=== PATIENT | female | born 1980 | race Caucasian/White ===

== ENCOUNTER 2017-02-18 13:06 | Emergency (ER) | payer OTHER, MEDICAID, SELFPAY ==
--- NOTE | 2017-02-18 15:04 | Emergency Department Record ---
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 [facility] MD Complaint: Back pain Onset/Timin -: Minutes(s) Similar Symptoms Previously: Yes Place: Home Radiation: None Severity scale (1-10): 6 Quality: Other Consistency: Constant Improves With: Immobilization Worsens With: Movement Context: Unknown Associated Symptoms: Denies other symptoms Treatment Prior to Arrival Comment:: Motrin - Related Data Previous Rx's Medication Instructions Recorded Cyclobenzaprine HCl [Flexeril] 10 mg PO TID #30 tablet 02/18/17 Hydrocodone/Acetaminophen [[place] 1 each PO Q4HR #30 tablet 02/18/17 5-325 Tablet] Naproxen [Naprosyn] 500 mg PO BID #30 tablet 02/18/17 Allergies Allergy/AdvReac Type Severity Reaction Status Date / Time methylergonovine maleate Allergy Mild VOMITING Verified 02/18/17 13:25 [From Methergine] dicyclomine AdvReac Mild VOMITING Verified 02/18/17 13:25 Travel Screening - Travel/Exposure Within Last 30 Days Have you traveled within the last 30 days?: No Review of Systems Reviewed: No additional complaints except as noted below Constitutional: Reports: As per HPI. Denies: Chills, Fever, Malaise, Night sweats, Weakness, Weight change Eyes: Reports: As per HPI. Denies: Eye discharge, Eye pain, Photophobia, Vision change ENT: Reports: As per HPI. Denies: Congestion, Dental pain, Ear pain, Epistaxis , Hearing loss, Throat pain Respiratory: Reports: As per HPI. Denies: Cough, Dyspnea, Hemoptysis, Stridor, Wheezes Cardiovascular: Reports: As per HPI. Denies: Arrhythmia, Chest pain, Dyspnea on exertion, Edema, Murmurs, Orthopnea, Palpitations, Paroxysmal nocturnal dyspnea, Rheumatic Fever, Syncope Endocrine: Reports: As per HPI. Denies: Fatigue, Heat or cold intolerance, Polydipsia, Polyuria Gastrointestinal: Reports: As per HPI. Denies: Abdominal pain, Constipation, Diarrhea, Hematemesis, Hematochezia, Melena, Nausea, Vomiting Genitourinary: Reports: As per HPI. Denies: Abnormal menses, Discharge, Dyspareunia, Dysuria, Frequency, Hematuria, Incontinence, Retention, Urgency Musculoskeletal: Reports: As per HPI, Back pain (bilateral back pain). Denies: Arthralgia, Gout, Joint swelling, Myalgia, Neck pain Skin: Reports: As per HPI. Denies: Bruising, Change in color, Change in hair/ nails, Lesions, Pruritus, Rash Neurological: Reports: As per HPI. Denies: Abnormal gait, Confusion, Headache, Numbness, Paresthesias, Seizure, Tingling, Tremors, Vertigo, Weakness Psychiatric: Reports: As per HPI. Denies: Anxiety, Auditory hallucinations, Depression, Homicidal thoughts, Suicidal thoughts, Visual hallucinations Hematological/Lymphatic: Reports: As per HPI. Denies: Anemia, Blood Clots, Easy bleeding, Easy bruising, Swollen glands Past Medical History - SOCIAL HISTORY Smoking Status: Former smoker Alcohol Use: None Drug Use: None - RESPIRATORY Hx Respiratory Disorders: No - CARDIOVASCULAR Hx Cardio Disorders: No - NEURO Hx Neuro Disorders: No - GI Hx GI Disorders: No - Hx Genitourinary Disorders: No - ENDOCRINE Hx Endocrine Disorders: Yes Hx Diabetes: No Hx Thyroid Disease: Yes - MUSCULOSKELETAL Hx Musculoskeletal Disorders: No - PSYCH Hx Psych Problems: No - HEMATOLOGY/ONCOLOGY Hx Hematology/Oncology Disorders: No Family Medical History Any Significant Family History?: Yes Hx Cancer: Grandparents Hx Diabetes: Father Hx Heart Disease: Father, Children Hx Resp Disorders: Mother, Children Physical Exam - General General Appearance: Alert, Oriented x3, Cooperative, No acute distress - Head Head exam: Normal inspection - Eye Eye exam: Normal appearance, PERRL Pupils: Normal accommodation - ENT ENT exam: Normal exam, Mucous membranes moist, Normal external ear exam, Normal orophraynx, TM's normal bilaterally Ear exam: Normal external inspection. negative: External canal tenderness Nasal Exam: Normal inspection. negative: Discharge, Sinus tenderness Mouth exam: Normal external inspection, Tongue normal Teeth exam: Normal inspection. negative: Dental caries Throat exam: Normal inspection. negative: Tonsillar erythema, Tonsillar exudate - Neck Neck exam: Normal inspection, Full ROM. negative: Tenderness - Respiratory Respiratory exam: Normal lung sounds bilaterally. negative: Respiratory distress - Cardiovascular Cardiovascular Exam: Regular rate, Normal rhythm, Normal heart sounds - GI/Abdominal GI/Abdominal exam: Soft, Normal bowel sounds. negative: Tenderness - Rectal Rectal exam: Deferred - exam: Deferred - Extremities Extremities exam: Normal inspection, Full ROM, Normal capillary refill. negative: Tenderness - Back Back exam: Reports: Full ROM, Muscle spasm, Tenderness (pain with moving back , pain with palpatrion). Denies: Rash noted - Neurological Neurological exam: Alert, Normal gait, Oriented X3, Reflexes normal - Psychiatric Psychiatric exam: Normal affect, Normal mood - Skin Skin exam: Dry, Intact, Normal color, Warm Course Vital Signs 02/18/17 13:22 Temperature 98.8 F Pulse Rate 83 Respiratory 20 Rate Blood Pressure 113/82 Pulse Ox 97 Disposition Clinical Impression: Lumbar strain Qualifiers: Encounter type: initial encounter Qualified Code(s): S39.012A - Strain of muscle, fascia and tendon of lower back, initial encounter Disposition: Home, Self-Care Condition: (1) Good Instructions: Low Back Strain (ED) Additional Instructions: ice to back. Prescriptions: Hydrocodone/Acetaminophen [[place] 5-325 Tablet] 1 each PO Q4HR #30 tablet Cyclobenzaprine HCl [Flexeril] 10 mg PO TID #30 tablet Naproxen [Naprosyn] 500 mg PO BID #30 tablet Forms: Patient Portal Access Time of Disposition: 15:28 Quality - Quality Measures Quality Measures: N/A - Blood Pressure Screening Does Patient Have Any of the Following: No Blood Pressure Classification: Pre-Hypertensive BP Reading Systolic Measurement: 113 Diastolic Measurement: 82 Screening for High Blood Pressure: < Pre-Hypertensive BP, F/U Documented > [ G8950] Pre-Hypertensive Follow-up Interventions: Referral to alternative/primary care provider.
[2017-02-18] MEDS ORDERED: DIAZEPAM 5 MG/1 ML TUBX IM ONE (15:05)
[2017-02-18] MEDS ORDERED: KETOROLAC 60 MG/2 ML VIAL IM STA (15:05)
[2017-02-18] MEDS ORDERED: PROMETHAZINE HCL 25 MG/ML VIAL IM ONE (17:15)
[2017-02-18] MEDS ORDERED: HYDROMORPHONE HCL 1MG/ML **SYRINGE IM ONE (17:15)
== END 2017-02-18 18:27 | disposition home or self-care (01) ==
LOC: ER 13:06
DX: S39.012A Strain of muscle, fascia and tendon of lower back, initial encounter (principal); X50.9XXA Other and unspecified overexertion or strenuous movements or postures, initial encounter; Y93.01 Activity, walking, marching and hiking
CPT/HCPCS: 99283 ×2; 96372; J1170; J1885; J2550; J3360

== ENCOUNTER 2017-05-12 10:13 | Emergency (ER) | payer BC, MEDICAID ==
[2017-05-12 11:05] LABS: BASO % 0.3 % (0-6); GRAN % 57.4 % (47-80); HEMATOCRIT 38.7 % (35.0-47.0); HEMOGLOBIN 13.4 gm/dl (11.6-16.0); LYMPH % 33.2 % (16-45); MEAN CELL VOLUME 87.4 fl (81-97); MEAN CORPUSCULAR HEMOGLOBIN 30.2 pg (27-33); MEAN CORPUSCULAR HGB CONC 34.6 g/dl (32-36); MEAN PLATELET VOLUME 9.3 fl (7.4-10.4); MONO % 8.1 % (0-9); PLATELET COUNT 249 K/uL (130-400); RED BLOOD COUNT 4.43 M/uL (3.80-5.40); WHITE BLOOD COUNT W/O DIFF 6.2 K/uL (4.2-12.2)
--- NOTE | 2017-05-12 11:17 | Emergency Department Record ---
History of Present Illness - General Chief Complaint: Abdominal Pain Stated Complaint: ABDOMINAL PAIN Time Seen by Provider: 05/12/17 10:37 Source: Patient Mode of Arrival: Ambulatory Limitations: No limitations - History of Present Illness Initial Comments: pt had lightheadness and near syncope after she took a shower. she also had severe transient abd pain. she feels better now Onset/Timin -: Minutes(s) Location: Epigastric Radiation: Back Quality: Sharp Consistency: Constant Improves With: Nothing Worsens With: Nothing Associated Symptoms: Nausea - Related Data Home Medications Medication Instructions Recorded Confirmed Last Taken No Home Med [NO HOME MEDS] 05/12/17 05/12/17 Unknown Allergies Allergy/AdvReac Type Severity Reaction Status Date / Time methylergonovine maleate Allergy Mild VOMITING Verified 05/12/17 10:30 [From Methergine] dicyclomine AdvReac Mild VOMITING Verified 05/12/17 10:30 Travel Screening - Travel/Exposure Within Last 30 Days Have you traveled within the last 30 days?: No Review of Systems Reviewed: No additional complaints except as noted below Constitutional: Reports: As per HPI. Denies: Chills, Fever, Malaise, Night sweats, Weakness, Weight change Eyes: Reports: As per HPI. Denies: Eye discharge, Eye pain, Photophobia, Vision change ENT: Reports: As per HPI. Denies: Congestion, Dental pain, Ear pain, Epistaxis , Hearing loss, Throat pain Respiratory: Reports: As per HPI. Denies: Cough, Dyspnea, Hemoptysis, Stridor, Wheezes Cardiovascular: Reports: As per HPI. Denies: Arrhythmia, Chest pain, Dyspnea on exertion, Edema, Murmurs, Orthopnea, Palpitations, Paroxysmal nocturnal dyspnea, Rheumatic Fever, Syncope Endocrine: Reports: As per HPI. Denies: Fatigue, Heat or cold intolerance, Polydipsia, Polyuria Gastrointestinal: Reports: As per HPI. Denies: Abdominal pain, Constipation, Diarrhea, Hematemesis, Hematochezia, Melena, Nausea, Vomiting Genitourinary: Reports: As per HPI. Denies: Abnormal menses, Discharge, Dyspareunia, Dysuria, Frequency, Hematuria, Incontinence, Retention, Urgency Musculoskeletal: Reports: As per HPI. Denies: Arthralgia, Back pain, Gout, Joint swelling, Myalgia, Neck pain Skin: Reports: As per HPI. Denies: Bruising, Change in color, Change in hair/ nails, Lesions, Pruritus, Rash Neurological: Reports: As per HPI. Denies: Abnormal gait, Confusion, Headache, Numbness, Paresthesias, Seizure, Tingling, Tremors, Vertigo, Weakness Psychiatric: Reports: As per HPI. Denies: Anxiety, Auditory hallucinations, Depression, Homicidal thoughts, Suicidal thoughts, Visual hallucinations Hematological/Lymphatic: Reports: As per HPI. Denies: Anemia, Blood Clots, Easy bleeding, Easy bruising, Swollen glands Past Medical History - SOCIAL HISTORY Smoking Status: Former smoker Alcohol Use: None Drug Use: None - RESPIRATORY Hx Respiratory Disorders: No - CARDIOVASCULAR Hx Cardio Disorders: No - NEURO Hx Neuro Disorders: No - GI Hx GI Disorders: No - Hx Genitourinary Disorders: No - ENDOCRINE Hx Endocrine Disorders: Yes Hx Diabetes: No Hx Thyroid Disease: Yes - MUSCULOSKELETAL Hx Musculoskeletal Disorders: No - PSYCH Hx Psych Problems: No - HEMATOLOGY/ONCOLOGY Hx Hematology/Oncology Disorders: No Family Medical History Any Significant Family History?: Yes Hx Cancer: Grandparents Hx Diabetes: Father Hx Heart Disease: Father, Children Hx Resp Disorders: Mother, Children Physical Exam - General General Appearance: Alert, Oriented x3, Cooperative, Mild distress - Head Head exam: Normal inspection - Eye Eye exam: Normal appearance, PERRL, EOMI Pupils: Normal accommodation - ENT ENT exam: Normal exam, Mucous membranes moist, Normal external ear exam, Normal orophraynx Ear exam: Normal external inspection. negative: External canal tenderness Nasal Exam: Normal inspection. negative: Discharge, Sinus tenderness Mouth exam: Normal external inspection, Tongue normal Teeth exam: Normal inspection. negative: Dental caries Throat exam: Normal inspection. negative: Tonsillar erythema, Tonsillar exudate - Neck Neck exam: Normal inspection, Full ROM. negative: Tenderness - Respiratory Respiratory exam: Normal lung sounds bilaterally. negative: Respiratory distress - Cardiovascular Cardiovascular Exam: Regular rate, Normal rhythm, Normal heart sounds - GI/Abdominal GI/Abdominal exam: Soft, Normal bowel sounds. negative: Tenderness - Rectal Rectal exam: Deferred - exam: Deferred - Extremities Extremities exam: Normal inspection, Full ROM, Normal capillary refill. negative: Tenderness - Back Back exam: Reports: Normal inspection, Full ROM. Denies: Muscle spasm, Rash noted, Tenderness - Neurological Neurological exam: Alert, CN II-XII intact, Normal gait, Oriented X3 - Psychiatric Psychiatric exam: Normal affect, Normal mood - Skin Skin exam: Dry, Intact, Normal color, Warm Course Vital Signs 05/12/17 10:22 Temperature 97.8 F Pulse Rate 78 Respiratory 16 Rate Blood Pressure 122/77 Pulse Ox 99 Medical Decision Making - Lab Data Result diagrams: 05/12/17 10:52 05/12/17 10:52 Lab Results 05/12/17 Range/Units 10:52 WBC 6.2 (4.2-12.2) K/uL RBC 4.43 (3.80-5.40) M/uL Hgb 13.4 (11.6-16.0) gm/dl Hct 38.7 (35.0-47.0) % MCV 87.4 (81-97) fl MCH 30.2 (27-33) pg MCHC 34.6 (32-36) g/dl RDW 12.0 (11.5-14.5) % Plt Count 249 (130-400) K/uL MPV 9.3 (7.4-10.4) fl Gran % 57.4 (47-80) % Lymphocytes % 33.2 (16-45) % Monocytes % 8.1 (0-9) % Eosinophils % 1.0 (0-6) % Basophils % 0.3 (0-6) % Disposition Disposition: Discharge Clinical Impression: Near syncope Abdominal pain Qualifiers: Abdominal location: upper abdomen, unspecified Qualified Code(s): R10.10 - Upper abdominal pain, unspecified Disposition: Home, Self-Care Condition: (1) Good Instructions: Abdominal Pain (ED), Near Syncope (ED) Additional Instructions: follow up with family doctor for further evaluation. return sooner if worse. push fluids. rest Forms: Patient Portal Access Quality - Quality Measures Quality Measures: N/A - Blood Pressure Screening Does Patient Have Any of the Following: No Blood Pressure Classification: Pre-Hypertensive BP Reading Systolic Measurement: 122 Diastolic Measurement: 77 Screening for High Blood Pressure: < Pre-Hypertensive BP, F/U Documented > [ G8950] Pre-Hypertensive Follow-up Interventions: Follow-up with rescreen every year.
[2017-05-12 11:30] LABS: URINE APPEARANCE CLEAR; URINE BILIRUBIN NEGATIVE (NEGATIVE); URINE BLOOD NEGATIVE (NEGATIVE); URINE COLOR YELLOW; URINE GLUCOSE (UA) NEGATIVE (NEGATIVE); URINE KETONE NEGATIVE (NEGATIVE); URINE LEUKOCYTE ESTERASE NEGATIVE (NEGATIVE); URINE NITRITE NEGATIVE (NEGATIVE); URINE PROTEIN NEGATIVE (NEGATIVE); URINE UROBILINOGEN 0.2 E.U./dL (0.20 - 1.00)
[2017-05-12 11:33] LABS: ALB/GLOB RATIO 1.5 (1.1-1.8); ALBUMIN 4.2 g/dL (4.0-5.0); ALKALINE PHOSPHATASE 44 U/L (35-104); ALT/SGPT 36 U/L (<33); AST/SGOT 32 U/L (10.0-35.0); BLOOD UREA NITROGEN 7 mg/dL (6-20); CREATININE 0.4 mg/dL (0.5-0.9); EST GLOMERULAR FILTRATION RATE > 60 mL/min; GLUCOSE,RANDOM 99 mg/dL (74-109)
== END 2017-05-12 13:10 | disposition home or self-care (01) ==
LOC: ER 10:13
DX: R55 Syncope and collapse (principal); R10.13 Epigastric pain; R11.0 Nausea
CPT/HCPCS: 80053; 81003; 84443; 85025; 93005; 93010; 99284

== ENCOUNTER 2018-06-11 14:42 | Emergency (ER) | payer BC, MEDICAID ==
--- NOTE | 2018-06-11 15:01 | Emergency Department Record ---
History of Present Illness - General Chief complaint: ENT Stated complaint: SORE THROAT Time Seen by Provider: 06/11/18 14:48 Source: Patient Mode of Arrival: Ambulatory Limitations: No limitations - History of Present Illness Initial comments: The patient is here due to a ST for 2 days. She also feels like her sinuses are inflamed but she has no nasal discharge. She denies any cough, fever, HENNESSY, but is having body aches. MD complaint: Sore throat Onset/Timin -: Days(s) Location: Throat Severity: Moderate Severity scale (1-10): 7 Quality: Aching, Burning Consistency: Constant Improves with: None Worsens with: None Associated Symptoms: Pain with swallowing, Sore throat - Related Data Home Medications Medication Instructions Recorded Confirmed Last Taken Thyroid,Pork [Thyroid] 60 mg PO DAILY 06/11/18 06/11/18 Unknown Previous Rx's Medication Instructions Recorded Fluticasone Propionate [Flonase] 2 spray EACH NARES DAILY #1 bottle 06/11/18 Prednisone [Prednisone 20Mg] 40 mg PO DAILY #10 tab 06/11/18 Allergies Allergy/AdvReac Type Severity Reaction Status Date / Time methylergonovine maleate Allergy Mild VOMITING Verified 06/11/18 14:49 [From Methergine] dicyclomine AdvReac Mild VOMITING Verified 06/11/18 14:49 Travel Screening - Travel/Exposure Within Last 30 Days Have you traveled within the last 30 days?: No Review of Systems Constitutional: Reports: Malaise. Denies: Chills, Fever Eyes: Denies: Eye discharge ENT: Reports: Throat pain. Denies: Congestion Respiratory: Denies: Cough Past Medical History - SOCIAL HISTORY Smoking Status: Former smoker - RESPIRATORY Hx Respiratory Disorders: No - CARDIOVASCULAR Hx Cardio Disorders: No - NEURO Hx Neuro Disorders: No - GI Hx GI Disorders: No - Hx Genitourinary Disorders: No - ENDOCRINE Hx Endocrine Disorders: Yes Hx Diabetes: No Hx Thyroid Disease: Yes - MUSCULOSKELETAL Hx Musculoskeletal Disorders: No - PSYCH Hx Psych Problems: No - HEMATOLOGY/ONCOLOGY Hx Hematology/Oncology Disorders: No Family Medical History Any Significant Family History?: Yes Hx Cancer: Grandparents Hx Diabetes: Father Hx Heart Disease: Father, Children Hx Resp Disorders: Mother, Children Physical Exam - General General Appearance: Alert, Oriented x3, Cooperative, No acute distress - Head Head exam: Atraumatic, Normocephalic, Normal inspection - Eye Eye exam: Normal appearance, PERRL, EOMI - ENT Throat exam: Tonsillar erythema, Other (There are vesicles on an erythematous base on the soft palate.). negative: Normal inspection, Tonsillomegaly, Tonsillar exudate - Neck Neck exam: Normal inspection, Full ROM. negative: Lymphadenopathy, Meningismus , Tenderness - Respiratory Respiratory exam: Normal lung sounds bilaterally. negative: Respiratory distress - Cardiovascular Cardiovascular Exam: Regular rate, Normal rhythm, Normal heart sounds - Extremities Extremities exam: Normal inspection, Full ROM, Normal capillary refill. negative: Tenderness - Neurological Neurological exam: Alert, Normal gait. negative: Abnormal gait Course Vital Signs 06/11/18 14:46 Temperature 97.9 F Pulse Rate 80 Respiratory 18 Rate Blood Pressure 127/76 Pulse Ox 99 - Reevaluation(s) Reevaluation #1: I did explain to the patient the Strep was neg and it appears she has a viral URI. She is to take the medicines and see her PCP if not better in 3 days. 06/11/18 15:27 Medical Decision Making - Data Complexity MDM Data: Labs Ordered and/or Reviewed (Strep: Neg) Disposition Disposition: Discharge Clinical Impression: Stomatitis, viral Disposition: Home, Self-Care Condition: (2) Stable Instructions: Pharyngitis (ED) Additional Instructions: Please take the Flonase and Prednisone as directed and also you may use Tylenol. Please see your family doctor if not better in 3 days. Return to the ER for any worsening symptoms, pain, fever, or vomiting. Prescriptions: Fluticasone Propionate [Flonase] 2 spray EACH NARES DAILY #1 bottle Prednisone [Prednisone 20Mg] 40 mg PO DAILY #10 tab Forms: Patient Portal Access Time of Disposition: 15:21 Quality - Quality Measures Quality Measures: N/A - Blood Pressure Screening View Details: Yes Does Patient Have Any of the Following: No Blood Pressure Classification: Pre-Hypertensive BP Reading Systolic Measurement: 127 Diastolic Measurement: 76 Screening for High Blood Pressure: < Pre-Hypertensive BP, F/U Documented > [ G8950] Pre-Hypertensive Follow-up Interventions: Referral to alternative/primary care provider.
== END 2018-06-11 15:49 | disposition home or self-care (01) ==
LOC: ER 14:42
DX: K12.1 Other forms of stomatitis (principal); Z87.891 Personal history of nicotine dependence
CPT/HCPCS: 87880; 99282

== ENCOUNTER 2018-09-08 14:33 | Emergency (ER) | payer MEDICAID ==
--- NOTE | 2018-09-08 14:58 | Emergency Department Record ---
History of Present Illness - General Chief complaint: Extremity Problem Stated complaint: RT KNEE INJURY Time Seen by Provider: 09/08/18 14:38 Source: Patient Mode of Arrival: Ambulatory Limitations: No limitations - History of Present Illness Initial comments: 38 yo female presents with right knee pain. She reports and injury with a fall about three weeks ago. She had some persistent pain from that time. 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 The pain and swelling are now worse. No history of prior right knee surgery. No fevers or chills. No abnormal warmth or redness. MD Complaint: Extremity swelling, Joint pain -: Week(s) (3) Location: Right, Knee History of Same: Yes -: Yes Arthralgia Radiation: None Quality: Aching Consistency: Constant Improves with: Elevation, Immobilization Worsens with: Palpation, Walking, Weight bearing Associated Symptoms: Denies other symptoms - Related Data Allergies Allergy/AdvReac Type Severity Reaction Status Date / Time methylergonovine maleate Allergy Mild VOMITING Verified 09/08/18 14:41 [From Methergine] dicyclomine AdvReac Mild VOMITING Verified 09/08/18 14:41 Review of Systems Constitutional: Denies: Chills, Fever, Malaise, Weakness Eyes: Denies: Eye discharge ENT: Denies: Congestion, Throat pain Respiratory: Denies: Cough Cardiovascular: Denies: Chest pain, Syncope Endocrine: Denies: Fatigue Gastrointestinal: Denies: Abdominal pain, Diarrhea, Nausea, Vomiting Genitourinary: Denies: Dysuria Musculoskeletal: Reports: Arthralgia Skin: Denies: Bruising, Change in color, Rash Neurological: Denies: Headache Psychiatric: Denies: Anxiety Hematological/Lymphatic: Denies: Blood Clots, Easy bleeding, Easy bruising, Swollen glands Past Medical History - SOCIAL HISTORY Smoking Status: Former smoker - RESPIRATORY Hx Respiratory Disorders: No - CARDIOVASCULAR Hx Cardio Disorders: No - NEURO Hx Neuro Disorders: No - GI Hx GI Disorders: No - Hx Genitourinary Disorders: No - ENDOCRINE Hx Endocrine Disorders: Yes Hx Diabetes: No Hx Thyroid Disease: Yes - MUSCULOSKELETAL Hx Musculoskeletal Disorders: No - PSYCH Hx Psych Problems: No - HEMATOLOGY/ONCOLOGY Hx Hematology/Oncology Disorders: No Family Medical History Hx Cancer: Grandparents Hx Diabetes: Father Hx Heart Disease: Father, Children Hx Resp Disorders: Mother, Children Physical Exam - General General Appearance: Alert, Oriented x3, Cooperative, No acute distress Limitations: No limitations - Head Head exam: Atraumatic, Normal inspection - Eye Eye exam: Normal appearance. negative: Conjunctival injection - ENT ENT exam: Normal exam Ear exam: Normal external inspection Nasal Exam: Normal inspection Mouth exam: Normal external inspection - Neck Neck exam: Normal inspection - Extremities Extremities exam: Joint swelling, Tenderness. negative: Normal inspection, Full ROM Image of Full Body: 1 - mild anterior swelling consistent with effusion, tender patella, stable AP , no lateral or media laxity or joint line tenderness. - Neurological Neurological exam: Alert, Oriented X3 - Psychiatric Psychiatric exam: Normal affect, Normal mood - Skin Skin exam: Dry, Intact, Normal color, Warm. negative: Cyanosis, Diaphoretic, Erythema, Mottled Course - Reevaluation(s) Reevaluation #1: 09/08/18 15:13 The XR was reviewed. No acute bony abnormality. Effusion is present I recommended knee immobilizer, crutches, and follow up for further work up possible MRI Disposition Disposition: Discharge Clinical Impression: Knee effusion, right, Knee strain Disposition: Home, Self-Care Condition: (1) Good Instructions: Knee Sprain (ED) Additional Instructions: Call your doctor for the next available follow up appointment Return to the ER for a recheck if worse, any new concerns or questions Take the prescriptions provided as directed Review this ER visit and the tests performed with your family doctor Referrals: JEISON GRIFFIN [DOCTOR OF OSTEOPATH] - [facility] [Provider Group] Forms: Patient Portal Access Time of Disposition: 15:16 Quality - Quality Measures Quality Measures: N/A - Blood Pressure Screening Does Patient Have Any of the Following: No Blood Pressure Classification: Pre-Hypertensive BP Reading Systolic Measurement: 146 Diastolic Measurement: 89 Screening for High Blood Pressure: < Pre-Hypertensive BP, F/U Documented > [ G8950] Pre-Hypertensive Follow-up Interventions: Referral to alternative/primary care provider.
--- NOTE | 2018-09-12 06:28 | RADIOLOGY REPORT ---
EXAM: RIGHT KNEE HISTORY: FALL THREE WEEKS AGO, ANTERIOR KNEE PAIN. TECHNIQUE: Four views of the right knee were obtained. Comparison: None. FINDINGS: No significant knee joint effusion is appreciated. No acute fracture is seen. No evidence of dislocation. Very minimal osteophytes arising from the patella and the lateral compartment, could represent early mild osteoarthrosis. IMPRESSION: 1. NO ACUTE OSSEOUS FINDINGS. 2. POSSIBLE MINIMAL DEGENERATIVE CHANGE OF THE KNEE. JOB NUMBER: [id number] MTDD
== END 2018-09-08 15:47 | disposition home or self-care (01) ==
LOC: ER 14:33
DX: S83.91XA Sprain of unspecified site of right knee, initial encounter (principal); M25.461 Effusion, right knee; X50.1XXA Overexertion from prolonged static or awkward postures, initial encounter; Z87.891 Personal history of nicotine dependence
CPT/HCPCS: 99283

== ENCOUNTER 2018-12-07 18:00 | Emergency (ER) | payer MEDICAID ==
[2018-12-07] MEDS ORDERED: LORAZEPAM 0.5 MG TABLET PO ONE (18:17)
--- NOTE | 2018-12-07 18:23 | Emergency Department Record ---
Anxiety - General Chief Complaint: Anxiety Stated Complaint: ANGZIETY ATTACK Time Seen by Provider: 12/07/18 18:17 Source: Patient Mode of Arrival: Ambulatory Limitations: No limitations - History of Present Illness Initial Comments: 38 yo female presents to ED for evaluation following the onset of a "anxiety attack". Patient reports that she was at work when her boss "triggered an anxiety attack", reports similar symptoms 1 year ago surrounding her divorce. Patient does not take medication at home for her anxiety, denies previous heart or lung problems. MD Complaint: Anxiety Onset/Timin -: Days(s) Symptoms: Chest pain, Other Place: Work Previous History of Same: Yes Severity: Moderate Quality: Constant Provoking factors: None known, Emotional stress Improves With: Nothing Worsens With: Nothing Associated symptoms: Headaches - Related Data Allergies/Adverse Reactions: Allergies Allergy/AdvReac Type Severity Reaction Status Date / Time methylergonovine maleate Allergy Mild VOMITING Unverified 11/08/18 09:32 [From Methergine] dicyclomine AdvReac Mild VOMITING Unverified 11/08/18 09:32 Travel Screening - Travel/Exposure Within Last 30 Days Have you traveled within the last 30 days?: No Review of Systems Constitutional: Denies: Chills, Fever, Malaise, Night sweats Eyes: Denies: Eye discharge, Eye pain ENT: Denies: Congestion, Ear pain, Epistaxis Respiratory: Denies: Cough, Dyspnea Cardiovascular: Reports: Chest pain. Denies: Dyspnea on exertion Endocrine: Denies: Fatigue, Heat or cold intolerance Gastrointestinal: Denies: Abdominal pain, Nausea, Vomiting Genitourinary: Denies: Incontinence, Retention Musculoskeletal: Denies: Arthralgia, Back pain Skin: Denies: Bruising, Change in color Neurological: Denies: Abnormal gait, Confusion, Headache Psychiatric: Reports: Anxiety Hematological/Lymphatic: Denies: Anemia, Blood Clots Past Medical History - SOCIAL HISTORY Smoking Status: Former smoker Alcohol Use: None Drug Use: None - RESPIRATORY Hx Respiratory Disorders: No - CARDIOVASCULAR Hx Cardio Disorders: No - NEURO Hx Neuro Disorders: No - GI Hx GI Disorders: No - Hx Genitourinary Disorders: No - ENDOCRINE Hx Endocrine Disorders: Yes Hx Diabetes: No Hx Thyroid Disease: Yes - MUSCULOSKELETAL Hx Musculoskeletal Disorders: No - PSYCH Hx Psych Problems: Yes Hx Anxiety: Yes - HEMATOLOGY/ONCOLOGY Hx Hematology/Oncology Disorders: No Family Medical History Any Significant Family History?: Yes Hx Cancer: Grandparents Hx Diabetes: Father Hx Heart Disease: Father, Children Hx Resp Disorders: Mother, Children Physical Exam - General General Appearance: Alert, Oriented x3, Cooperative, Anxious, Other (Tearful on exmaination) Limitations: No limitations - Head Head exam: Atraumatic, Normocephalic, Normal inspection Head exam detail: negative: Abrasion, Contusion, Brown's sign, General tenderness, Hematoma, Laceration - Eye Eye exam: Normal appearance. negative: Conjunctival injection, Periorbital swelling, Periorbital tenderness, Scleral icterus - ENT Ear exam: negative: Auricular hematoma, Auricular trauma Nasal Exam: negative: Active bleeding, Discharge, Dried blood, Foreign body Mouth exam: negative: Drooling, Laceration, Tongue elevation - Neck Neck exam: Normal inspection. negative: Meningismus, Tenderness - Respiratory Respiratory exam: Normal lung sounds bilaterally. negative: Respiratory distress, Rhonchi, Stridor, Wheezes - Cardiovascular Cardiovascular Exam: Regular rate, Normal rhythm, Normal heart sounds - GI/Abdominal GI/Abdominal exam: Soft. negative: Distended, Rebound, Rigid, Tenderness - Rectal Rectal exam: Deferred - exam: Deferred - Extremities Extremities exam: Normal inspection. negative: Pedal edema, Tenderness - Back Back exam: Denies: CVA tenderness (R), CVA tenderness (L) - Neurological Neurological exam: Alert, Normal gait, Oriented X3 - Psychiatric Psychiatric exam: Normal affect, Normal mood - Skin Skin exam: Normal color. negative: Abrasion Type of lesion: negative: abrasion Course Vital Signs 12/07/18 18:08 Temperature 98.7 F Pulse Rate 97 H Respiratory 20 Rate Blood Pressure 141/102 Pulse Ox 98 - Reevaluation(s) Reevaluation #1: 12/07/18 18:44 EKG: NSR 79 Normal axis, normal intervals No acute ST-T wave changes Patient was updated on the review of her EKG, reports that she would prefer to take the anxiety medication once she arrives home. Patient appears stable for discharge at this time. Disposition Disposition: Discharge Clinical Impression: Panic attack Disposition: Home, Self-Care Condition: (2) Stable Instructions: Panic Attack (ED) Additional Instructions: Return to ED if your symptoms worsen or if you have any concerns. Follow-up with your family doctor in 3-5 days as directed. Forms: Patient Portal Access Time of Disposition: 18:45 Quality - Quality Measures Quality Measures: N/A - Blood Pressure Screening Does Patient Have Any of the Following: No Blood Pressure Classification: Hypertensive Reading Systolic Measurement: 141 Diastolic Measurement: 102 Screening for High Blood Pressure: < First Hypertensive BP, F/U Documented > [G8950] First Hypertensive Follow-up Interventions: Referral to alternative/primary care provider.
== END 2018-12-07 19:04 | disposition home or self-care (01) ==
LOC: ER 18:00
DX: F43.0 Acute stress reaction (principal); R07.9 Chest pain, unspecified; Z87.891 Personal history of nicotine dependence
CPT/HCPCS: 93005; 93010; 99284

== ENCOUNTER 2019-08-07 12:00 | Emergency (ER) | payer MEDICAID ==
[2019-08-07 12:25] LABS: ABSOLUTE NEUTROPHIL COUNT 4.57; BASO % 0.4 % (0-6); EOS % 1.8 % (0-6); HEMATOCRIT 41.2 % (35.0-47.0); HEMOGLOBIN 13.8 gm/dl (11.6-16.0); LYMPH % 33.8 % (16-45); MEAN CELL VOLUME 90.4 fl (81-97); MEAN CORPUSCULAR HEMOGLOBIN 30.3 pg (27-33); MEAN CORPUSCULAR HGB CONC 33.5 g/dl (32-36); MEAN PLATELET VOLUME 9.5 fl (7.4-10.4); PLATELET COUNT 269 K/uL (130-400); RED BLOOD COUNT 4.56 M/uL (3.80-5.40); RED CELL DISTRIBUTION WIDTH 12.3 % (11.5-14.5)
[2019-08-07 12:26] LABS: URINE APPEARANCE CLEAR; URINE BILIRUBIN NEGATIVE (NEGATIVE); URINE BLOOD TRACE-I (NEGATIVE); URINE COLOR YELLOW; URINE GLUCOSE (UA) NEGATIVE (NEGATIVE); URINE KETONE NEGATIVE (NEGATIVE); URINE LEUKOCYTE ESTERASE NEGATIVE (NEGATIVE); URINE NITRITE NEGATIVE (NEGATIVE); URINE PROTEIN NEGATIVE (NEGATIVE); URINE UROBILINOGEN 0.2 E.U./dL (0.20 - 1.00)
[2019-08-07] MEDS ORDERED: ONDANSETRON HCL IV 4 MG/2 ML VIAL IVP ONE (12:27)
[2019-08-07] MEDS ORDERED: KETOROLAC 30 MG/ML VIAL IVP ONE (12:28)
[2019-08-07 12:31] LABS: HCG,QUALITATIVE URINE NEGATIVE (NEGATIVE); URINE BACTERIA FEW; URINE MUCUS LIGHT; URINE RBC 0 - 2 (NONE SEEN); URINE WBC 0 - 2 (0-2/hpf)
[2019-08-07 12:33] LABS: BLOOD UREA NITROGEN 8 mg/dL (6-20); CREATININE 0.5 mg/dL (0.5-0.9); EST GLOMERULAR FILTRATION RATE > 60 mL/min
[2019-08-07 12:34] LABS: TOTAL PROTEIN 7.6 g/dL (6.6-8.7)
--- NOTE | 2019-08-07 12:34 | Emergency Department Record ---
History of Present Illness - General Chief Complaint: Abdominal Pain Stated Complaint: ABD PAIN Time Seen by Provider: 08/07/19 12:07 Source: Patient Mode of Arrival: Ambulatory Limitations: No limitations - History of Present Illness Initial Comments: 39 yo female presents with about 2 weeks of left lower abdominal pain and left side pain. The onset was gradual. The pain is now constant and sharp. She feels better laying down and after taking Motrin. The pain is worse with certain movements and activity. No significant changes in bowel movements, urination, or appetite. She has had a hysterectomy. She has had endometriosis. She has had 3 colonoscopies in the past for 'polyps'. No fever. She has nausea without vomiting. No vaginal bleeding or discharge. She was unable to see her INFRASTRUCTURE SECURITY ARCHITECT one week ago after her car broke down. She has a PCP at the [facility]. MD Complaint: Abdominal pain, Flank pain Onset/Timin -: Week(s) Location: LLQ Radiation: None Migration to: No migration Quality: Cramping Improves With: Nothing Worsens With: Nothing Associated Symptoms: Chills, Nausea - Related Data Patient : No Home Medications Medication Instructions Recorded Confirmed Last Taken Thyroid,Pork [Cornelia Thyroid] 60 mg PO DAILY 08/07/19 08/07/19 Unknown Previous Rx's Medication Instructions Recorded Ibuprofen [Motrin] 800 mg PO Q8H PRN #15 tab 08/07/19 Allergies Allergy/AdvReac Type Severity Reaction Status Date / Time dicyclomine AdvReac Mild VOMITING Verified 08/07/19 12:12 methylergonovine maleate AdvReac Mild VOMITING Verified 08/07/19 12:12 [From Methergine] Travel Screening - Travel/Exposure Within Last 30 Days Have you traveled within the last 30 days?: No Review of Systems Constitutional: Denies: Chills, Fever, Malaise, Weakness Eyes: Denies: Eye discharge, Eye pain, Photophobia, Vision change ENT: Denies: Congestion, Throat pain Respiratory: Denies: Cough, Dyspnea Cardiovascular: Denies: Chest pain, Syncope Endocrine: Denies: Fatigue, Polydipsia, Polyuria Gastrointestinal: Reports: As per HPI, Abdominal pain, Nausea. Denies: Diarrhea, Hematemesis, Hematochezia, Vomiting Genitourinary: Denies: Discharge, Dysuria, Frequency, Hematuria, Urgency Musculoskeletal: Reports: Back pain. Denies: Arthralgia, Joint swelling, Myalgia Skin: Denies: Bruising, Change in color, Rash Neurological: Denies: Headache Psychiatric: Denies: Anxiety Hematological/Lymphatic: Denies: Easy bleeding, Easy bruising Past Medical History - SOCIAL HISTORY Smoking Status: Former smoker Alcohol Use: None Drug Use: None - RESPIRATORY Hx Respiratory Disorders: No - CARDIOVASCULAR Hx Cardio Disorders: No Comment:: "racing heart" at times - NEURO Hx Neuro Disorders: Yes Hx Seizures: Yes - GI Hx GI Disorders: No - Hx Genitourinary Disorders: No - ENDOCRINE Hx Endocrine Disorders: Yes Hx Diabetes: No Hx Thyroid Disease: Yes - MUSCULOSKELETAL Hx Musculoskeletal Disorders: No - PSYCH Hx Psych Problems: Yes Hx Anxiety: Yes - HEMATOLOGY/ONCOLOGY Hx Hematology/Oncology Disorders: No Family Medical History Any Significant Family History?: Yes Hx Cancer: Grandparents Hx Diabetes: Father Hx Heart Disease: Father, Children Hx Resp Disorders: Mother, Children Physical Exam - General General Appearance: Alert, Oriented x3, Cooperative, No acute distress Limitations: No limitations - Head Head exam: Atraumatic, Normal inspection - Eye Eye exam: Normal appearance, PERRL. negative: Conjunctival injection, Scleral icterus - ENT ENT exam: Normal exam, Mucous membranes moist Ear exam: Normal external inspection Nasal Exam: Normal inspection Mouth exam: Normal external inspection - Neck Neck exam: Normal inspection - Respiratory Respiratory exam: Normal lung sounds bilaterally. negative: Respiratory distress - Cardiovascular Cardiovascular Exam: Regular rate, Normal rhythm, Normal heart sounds - GI/Abdominal GI/Abdominal exam: Soft, Other (She was non tender at the time of the examination, abdomen soft and flat). negative: Normal bowel sounds, Distended, Guarding, Rebound, Rigid, Tenderness - Rectal Rectal exam: Deferred - exam: Deferred - Extremities Extremities exam: Normal inspection - Back Back exam: Denies: CVA tenderness (R), CVA tenderness (L), Tenderness - Neurological Neurological exam: Alert, Oriented X3 - Psychiatric Psychiatric exam: Normal affect, Normal mood. negative: Agitated, Anxious - Skin Skin exam: Dry, Intact, Normal color, Warm Course Vital Signs 08/07/19 12:07 Pulse Rate 85 Respiratory 20 Rate Blood Pressure 125/84 Pulse Ox 100 - Reevaluation(s) Reevaluation #1: 08/07/19 12:33 Prior abdominal US and Pelvic US reviewed on EMR 2014 (no acute pathology) 08/07/19 12:41 The labs results were reviewed There are no acute significant abnormalities of the CBC There are no acute significant abnormalities of the CMP The UA was reviewed. No signs of infection or significant acute abnormality The HCG is negative 08/07/19 14:[address] scan was reviewed. The report was negative for acute process. No intra-abdominal process The patient was given a copy of her scan. I recommend close follow up with her PCP and to reschedule with her INFRASTRUCTURE SECURITY ARCHITECT DC vitals were reviewed. The patient was given a copy of the radiology reports to review with their family doctor for follow up Medical Decision Making - Lab Data Result diagrams: 08/07/19 12:10 08/07/19 12:10 Lab Results 08/07/19 Range/Units 12:10 WBC 8.0 (4.2-12.2) K/uL RBC 4.56 (3.80-5.40) M/uL Hgb 13.8 (11.6-16.0) gm/dl Hct 41.2 (35.0-47.0) % MCV 90.4 (81-97) fl MCH 30.3 (27-33) pg MCHC 33.5 (32-36) g/dl RDW 12.3 (11.5-14.5) % Plt Count 269 (130-400) K/uL MPV 9.5 (7.4-10.4) fl Gran % 57.0 (47-80) % Lymphocytes % 33.8 (16-45) % Monocytes % 7.0 (0-9) % Eosinophils % 1.8 (0-6) % Basophils % 0.4 (0-6) % Absolute Neutrophils 4.57 Disposition Disposition: Discharge Clinical Impression: Left flank pain Disposition: Home, Self-Care Condition: (1) Good Instructions: Abdominal Pain (ED) Additional Instructions: Review this ER visit and the tests performed with your family doctor Call your doctor for the next available follow up appointment Return to the ER for a recheck immediately if worse, any new concerns or questions Take the prescriptions provided as directed Prescriptions: Ibuprofen [Motrin] 800 mg PO Q8H PRN #15 tab PRN Reason: Pain - Mild (1-4) Forms: Patient Portal Access Time of Disposition: 14:59 Quality - Quality Measures Quality Measures: N/A - Blood Pressure Screening Does Patient Have Any of the Following: No Blood Pressure Classification: Pre-Hypertensive BP Reading Systolic Measurement: 125 Diastolic Measurement: 84 Screening for High Blood Pressure: < Pre-Hypertensive BP, F/U Documented > [G895 0] Pre-Hypertensive Follow-up Interventions: Referral to alternative/primary care provider.
[2019-08-07 12:36] LABS: GLUCOSE,RANDOM 87 mg/dL (74-109)
[2019-08-07 12:38] LABS: ALT/SGPT 21 U/L (<33); AST/SGOT 24 U/L (10.0-35.0)
[2019-08-07 12:39] LABS: ALB/GLOB RATIO 1.5 (1.1-1.8); ALBUMIN 4.6 g/dL (4.0-5.0); ALKALINE PHOSPHATASE 52 U/L (35-104)
--- NOTE | 2019-08-07 14:51 | CT SCAN REPORT ---
EXAMINATION: CT Abdomen and Pelvis with IV Contrast EXAM DATE: 08/07/2019 2:06 PM TECHNIQUE: CT imaging of the abdomen and pelvis was performed with intravenous contrast. Coronal and sagittal images were reconstructed. IV Contrast: The amount and type of contrast are recorded in the medical record. INDICATION: LLQ, left side pain. COMPARISON: None The current CT demo coordinator radiograph does not disclose any acute abnormality. CT ABDOMEN AND PELVIS FINDINGS: Lung Bases: Scans through the lung bases do not disclose any acute pulmonary infiltrates or pleural e ffusions. Hepatobiliary: The liver has a normal size with a smooth surface. The hepatic and portal veins appear patent. There are no radiopaque gallstones or biliary dilatation. Pancreas: The pancreas is normal. Spleen: The spleen is not enlarged. Adrenals: The adrenal glands are normal. Kidneys, Ureters, & Bladder: There are no radiopaque renal stones and the kidneys appear normal with prompt bilateral contrast excretion. Along the anticipated course of the ureters there are no radiop aque ureteral stones and no obstructive uropathy. There is limited distention of the urinary bladder without specific abnormality seen. Gastrointestinal: No acute colonic abnormality is seen and the appendix is normal. No acute small bow el abnormality is seen. The stomach appears normal. Reproductive Organs: There has been prior hysterectomy and there is no free pelvic fluid or pelvic ma ss. No adnexal abnormality is seen. Lymphatic System: There is no mesenteric, retroperitoneal or pelvic lymphadenopathy. Vasculature: Normal caliber abdominal aorta. Peritoneum: There is no abdominal fluid or free air. Abdominal Wall & Musculoskeletal: No acute abdominal wall abnormality is seen. Images at bone window do not disclose any acute abnormality. IMPRESSION: No radiopaque renal, ureteral or bladder stones and no obstructive uropathy. No acute bowel abnormality identified and the appendix is normal. Status post hysterectomy without specific pelvic abnormality. Additional comments as above. Dictated by: Patrick York MD on 08/07/2019 2:37 PM. .
== END 2019-08-07 15:21 | disposition home or self-care (01) ==
LOC: ER 12:00
DX: R10.32 Left lower quadrant pain (principal); R11.0 Nausea; Z87.891 Personal history of nicotine dependence
CPT/HCPCS: 74177; 80053; 81001; 81025; 85025; 96374; 96375; 99284; J1885; J2405